=== PATIENT | female | born 1960 | race Caucasian/White ===

== ENCOUNTER → 2016-09-13 | Outpatient (CLI) | payer OTHER ==
--- NOTE | 2016-09-13 10:01 | CT ---
CT Chest, without contrast HISTORY: Congestion, evaluate for reported bronchiectasis Technique: [address] without contrast through the chest in a single breath-hold. Dose redu ction techniques were utilized. Multiplanar reconstructions were reviewed. COMPARISON: November 30, 2015 Findings: There increased bronchial wall thickening with scattered mucous plugging in both lower lobe s consistent with bronchitis. To a lesser extent this is also present in the medial right middle lobe . There is some minimal new consolidation in each costophrenic angle, consistent with subsegmental ba silar atelectasis. There is no infiltrate, mass, obvious adenopathy or pleural effusion. Mild cylindr ical bronchiectasis remains in both upper and lower lobes. Heart size remains normal without abnormal accumulation of pericardial fluid or obvious coronary artery disease. Limited scans through the uppe r abdomen are negative. There is no hiatal hernia or esophageal fluid. IMPRESSION: Mild bronchiectasis with active bronchitis and mucous plugging.
== END ==
LOC: FIMAGING 08:23
PROVIDERS: ATTEND Internal Medicine Rheumatology
DX: J40 Bronchitis, not specified as acute or chronic (principal)

== ENCOUNTER → 2017-10-19 | Outpatient (CLI) | payer OTHER | LOC: BMCIMAGING 09:47 | PROVIDERS: ATTEND Internal Medicine | DX: Z12.31 Encounter for screening mammogram for malignant neoplasm of breast (principal) ==

== ENCOUNTER → 2017-10-25 | Outpatient (CLI) | payer OTHER | LOC: BMCIMAGING 10:19 | PROVIDERS: ATTEND Internal Medicine | DX: R92.0 Mammographic microcalcification found on diagnostic imaging of breast (principal) ==

== ENCOUNTER → 2018-07-02 | Outpatient (CLI) | payer OTHER | LOC: BMCIMAGING 10:19 | PROVIDERS: ATTEND Internal Medicine | DX: R92.0 Mammographic microcalcification found on diagnostic imaging of breast (principal) ==

== ENCOUNTER → 2018-07-26 | Outpatient (CLI) | payer OTHER | LOC: BMCIMAGING 11:44 | PROVIDERS: ATTEND Internal Medicine Rheumatology | DX: J47.9 Bronchiectasis, uncomplicated (principal) ==

== ENCOUNTER → 2019-01-16 | Outpatient (CLI) | payer OTHER | LOC: BMCIMAGING 10:39 | PROVIDERS: ATTEND Obstetrics & Gynecology | DX: Z09 Encounter for follow-up examination after completed treatment for conditions other than malignant neoplasm (principal); R92.1 Mammographic calcification found on diagnostic imaging of breast ==